=== PATIENT | female | born 1955 | race Caucasian/White ===

== ENCOUNTER 2019-06-01 15:00 | Outpatient (CLI) | payer OTHER, SELFPAY ==
--- NOTE | 2019-06-01 13:37 | DI.RAD_ITS ---
SYMPTOMS/DIAGNOSIS: LT WRIST AND BASE OF THUMB PAIN, M25.539, 79.646 LEFT WRIST: Three views were obtained. There is narrowing of the cartilaginous joint space of the greater multangular first metacarpal joint. Prominent hypertrophic changes are also seen at this joint with some soft tissue calcifications also present at multiple sites. Otherwise the joints of the carpus are fairly well maintained with only mild degenerative changes noted elsewhere. 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
== END 2019-06-01 15:20 ==
PROVIDERS: PCP Family Medicine; Visit Provider Nurse Practitioner Family
DX: M25.532 Pain in left wrist (principal); M79.645 Pain in left finger(s); M18.12 Unilateral primary osteoarthritis of first carpometacarpal joint, left hand
CPT/HCPCS: 73110

== ENCOUNTER 2020-11-26 12:31 | Emergency (ER) | payer MEDICARE, SELFPAY ==
[2020-11-26 12:41] VITALS: BP 132/84; PULSE 87; RESP 20; TEMP 36; O2SAT 97
--- NOTE | 2020-11-26 13:00 | DI.RAD_ITS ---
EXAM: XR KNEE LT 3V AP,LAT,LENORE CLINICAL HISTORY: left knee pain post fall. TECHNIQUE: 2D digital imaging was performed. COMPARISON: No exams were available for comparison FINDINGS: BONES: No acute fracture is present. No bony destructive lesion is seen. JOINTS: The knee is normally aligned. No joint effusion is seen. SOFT TISSUE: Normal. IMPRESSION: No acute fracture or dislocation. DATA REPOSITORY: RADIATION DOSE DELIVERED:
--- NOTE | 2020-11-26 13:30 | ED.GENADUL_ITS ---
Discharge Plan Disposition Patient Disposition: HOME Condition: Good Discharge Details Clinical Impression: Contusion of knee Primary Care Provider: Marie Rubio ED Provider: Joana Ceron Home Meds and New Rx's Prescriptions: No Action cyclobenzaprine 10 mg tablet 10 mg PO DAILY RF: 0 clonazepam 1 mg tablet 0.5 mg PO DAILY RF: 0 potassium chloride 10 mEq tablet extended release 10 meq PO DAILY RF: 0 Breo Ellipta 100-25 mcg/dose blister with device INHALATION RF: 0 Discharge Instructions Instructions: Contusion in Adults (ED) Additional Instructions: tylenol as needed for pain may wear knee brace rest recheck in one week follow up with pcp and your oncologist tomorrow return earlier with new or worsening complaints Medical Decision Making Patient is alert, oriented, of decisional capacity She is ambulatory with steady but antalgic gait Cleansed and a checkup applied She states she has an appointment for an MRI tomorrow which she will present to She is discharged home in stable condition with stable vitals She feels safe for discharge home at this time She will take Tylenol as needed comfort Repeat x-ray in 1 week with persistent pain recommended She reportedly has an appointment with her oncologist tomorrow after MRI Differential Diagnosis Differential Diagnosis: Fracture, strain, contusion, abrasion Medical Records Medical records reviewed: Yes I reviewed the patient's medical records. HPI This 65-year-old female presents with mechanical slip and fall on feet, landing on the left knee. She was actually coming to the hospital for back pain radiation she has a recent diagnosis of lung cancer. She finished chemotherapy but it radiation. She reportedly was evaluated yesterday at their tomorrow by her oncologist and there was concern regarding pulmonary confusion MRI was ordered. One of the nursing staff from [facility] learning regarding her disposition yesterday. I did ask the patient regarding her MRI especially scheduled for tomorrow as she was unable to stay for MRI yesterday. She denies any additional injury. She states she has some minor tenderness in her left knee. She states her tetanus is up-to-date. She denies head injury or any additional complaints at this time. She was able to ambulate after the event occurred. She is not anticoagulated per patient Did drive to the emergency room and states that she felt comfortable doing better. General Date/Time Provider Initiated Documentation: 11/26/20 12:38 . Related Data Home Medications Medication Instructions Recorded Confirmed clonazepam 0.5 mg PO DAILY 11/26/20 11/26/20 cyclobenzaprine 10 mg PO DAILY 11/26/20 11/26/20 fluticasone furoate-vilanterol inh INHALATION 11/26/20 [Breo Ellipta] potassium chloride 10 meq PO DAILY 11/26/20 11/26/20 Allergies Allergy/AdvReac Type Severity Reaction Status Date / Time venom-wasp Allergy Severe Swelling/Ed Verified 05/30/19 11:21 lewis codeine AdvReac Intermediate she Verified 05/30/19 11:20 becomes angry,violent General Stated Complaint: Orthopedic TAMI: 4 Review of Systems Narrative: Review of systems negative x7 aside from where indicated in HPI PFSH Social History Smoking/Tobacco Use Status: Current every day Tobacco: How many years used: 50 Quit status: not considering quitting Smoking risk assessment performed?: Yes Alcohol Intake: current Alcohol Intake frequency: 3 or more drinks per day Previous attempts at quittin Details: has couseler Substance use type: does not use Seatbelt use: always Do you feel safe at home: Yes Do you feel safe in your relationship?: Yes Exam Const General: cooperative Orientation: alert and oriented x3 HENMT Other: Uvula midline, No visible evidence of trauma Eyes Pupils: PERRL Neck Other: No midline tenderness Resp Effort & Inspection: normal respiratory effort Auscultation: clear to auscultation bilaterally Cardio Rate: regular rate Rhythm: regular rhythm Back/Spine/Pelvis Other: No thoracic or lumbar tenderness, no tenderness to hips bilaterally Neuro General: patient alert and patient oriented x3 Other: Strength and sensation intact distally, GCS 15, alert and oriented x4 my evaluation Extrem Other: Bruising noted to bilateral knees, left knee tender, there is a small abrasion without any evidence of open fracture, no tenderness to left hip or left ankle, neurovascularly intact Course Vital Signs Vital signs: Vital Signs Temperature 36.0 C L 11/26/20 12:41 Pulse 87 11/26/20 12:41 Respiratory Rate 20 11/26/20 12:41 Blood Pressure 132/84 11/26/20 12:41 Pulse Oximetry 97 11/26/20 12:41 Temperature 36.0 C L 11/26/20 12:41 Temperature Source Skin 11/26/20 12:41 Pulse 87 11/26/20 12:41 Respiratory Rate 20 11/26/20 12:41 Respiratory Effort Non-Labored 11/26/20 12:44 Blood Pressure 132/84 11/26/20 12:41 Blood Pressure Position Sitting 11/26/20 12:41 Pulse Oximetry 97 11/26/20 12:41 Oxygen Delivery Method Room Air 11/26/20 12:41 Oxygen Flow Rate 0 11/26/20 12:41 Pain Level 8 11/26/20 12:41
--- NOTE | 2020-11-26 14:08 | NUR.NOTE ---
ns wash, bacitracin dsd to left knee wound. wound care discussed.
== END 2020-11-26 14:10 | disposition home or self-care (01) ==
PROVIDERS: Emergency Provider Physician Assistant; PCP Family Medicine
DX: S80.212A Abrasion, left knee, initial encounter (principal); W19.XXXA Unspecified fall, initial encounter
CPT/HCPCS: 73562; 99283